=== PATIENT | male | born 1950 | race Caucasian/White ===

== ENCOUNTER 2022-12-10 11:11 | Emergency (ER) | payer MEDICARE ==
[~2022-12-10] VITALS: Ht 177.8 cm; Wt 72.7 kg
[~2022-12-10 11:11] MED LIST: calcium chloride 100 MG/1 ML inj IV ONE; epiNEPHrine 0.1mg/ml 10ml syringe ONE; magnesium sulf 1 GM/2 ML ONE; sod chloride 0.9% 10ml flush syringe IV ONE; sodium bicarbonate (8.4%) 1 mEq/ml syringe ONE
--- NOTE | 2022-12-10 11:12 | NUR ---
PT ARRIVED CPR IN PROGRESS, BVM 1112- ASYSTOLE, 1MG EPI ADMINISTERED IO, CPR CONTINUED 1114- SODIUM BICARB ADMINISTERED, INUBATION COMPLETED, CPR CONTINUED 1115- PULSE CHECK- NO PULSE, ASYSTOLE, CPR CONTINUED 1116- 1MG EPI ADMINISTERED, CALCIUM ADMINISTERED, CPR CONTINUED 1117- PULSE CHECK, NO PULSE, ASYSTOLE, CPR CONTINUED 1119-1MG EPI ADMINISTERED, CPR CONT 1120- BICARB ADMINISTERED, 2G MAGNESIUM, ASYSTOLE, CPR CONTINUED 1121- NO CARDIAC FUNCTION ON ULTRASOUND, NO ROSC, CPR CONTINUED 1123- TIME OF CALLED BY DR. PFEIFFER FAMILY NOTIFIED BY
--- NOTE | 2022-12-10 13:56 | NUR ---
manager clinical research released body to family for mortuary at this time. family notified, pending family decision.
--- NOTE | 2022-12-10 14:20 | NUR ---
family decided on [facility], facility was contacted and will sent staff to [facility] body, all patients belonging excapt for underwear were removed and given to Nory.
== END 2022-12-10 16:40 ==
LOC: EDBD 11:12 → MERGE 11:12 → ER 11:12
DX: I46.9 Cardiac arrest, cause unspecified (principal); I10 Essential (primary) hypertension; Z79.899 Other long term (current) drug therapy
CPT/HCPCS: 31500; 92950; 99285; J0171; J3475; J3490